=== PATIENT | male | born 1985 | race Hispanic/Latino ===

== ENCOUNTER → 2018-09-21 | Outpatient (REF) ==
[~2018-09-21] MED LIST: FLUTICASONE50 MCG; MEDDOSEPAK PO; ZYRTEC10 MG PO
[2018-09-21 10:32] LABS: CHOLESTEROL HDL RATIO 4.2 (<4.4 (CALC))
== END | disposition home or self-care (01) | DRG 951 ==
LOC: LAB 08:58
PROVIDERS: ATTEND Family Medicine
DX: Z02.6 Encounter for examination for insurance purposes (principal)